=== PATIENT | male | born 1970 | race Caucasian/White ===

== ENCOUNTER 2023-06-12 07:55 | Emergency (ER) | payer MEDICARE ==
[2023-06-12] MEDS ORDERED: cefTRIAXone 2 GM Vial IVPUSH ONE (08:58)
[2023-06-12] MEDS ORDERED: Ondansetron 4 MG/2 ML SDV IVPUSH ONE (09:00)
[2023-06-12] MEDS ORDERED: fentaNYL 100 MCG/2 ML SDV IVPUSH ONE (09:02)
[2023-06-12] MEDS ORDERED: Iopamidol 612 MG/ML 100 ML Bottle IVPUSH ONE (09:08)
[2023-06-12] MEDS ORDERED: Lactated Ringers 1,000 ML IV ONE (09:08)
[2023-06-12 09:13] LABS: BASOPHILS PERCENT AUTO 0.1 % (0.0-1.0); EOSINOPHILS PERCENT AUTO 0.1 % (1.0-3.0); HEMATOCRIT 45.2 % (40.0-54.0); HEMOGLOBIN 13.9 g/dL (14.0-18.0); LYMPHOCYTES PERCENT AUTO 3.2 % (20.5-50.1); MEAN CORPUSCULAR HEMOGLOBIN 27.7 pg (27.0-34.0); MEAN CORPUSCULAR HGB CONC 30.8 g/dL (33.0-35.0); MEAN CORPUSCULAR VOLUME 90.2 fL (80-100); MONOCYTES PERCENT AUTO 8.3 % (2-8); NEUTROPHILS PERCENT AUTO 88.3 % (42.2-75.2); PLATELET COUNT,PLT 211 10^3/uL (150-450); RED BLOOD CELL COUNT 5.01 10^6/uL (4.6-6.2); WHITE BLOOD CELL COUNT,WBC 19.4 10^3/uL (5.0-10.0)
[2023-06-12 09:43] LABS: LACTIC ACID 1.7 mmol/L (0.4-2.0)
[2023-06-12 09:46] LABS: ALBUMIN 2.8 g/dL (3.4-5.0); ANION GAP 9.5 mEq/L (7-13); BILIRUBIN TOTAL 1.9 mg/dL (0.2-1.0); CALCIUM 8.6 mg/dL (8.5-10.1); CREATININE 1.66 mg/dL (0.70-1.30); EST CRCL DRUG DOSING (CG) 62.46 mL/min; MAGNESIUM 1.5 mg/dL (1.8-2.4); PHOSPHORUS 2.5 mg/dL (2.6-4.7); POTASSIUM,K 4.5 mmol/L (3.5-5.1); PROTEIN TOTAL,TP 7.1 g/dL (6.4-8.2)
[2023-06-12 09:53] LABS: A/G RATIO 0.65; C-REACTIVE PROTEIN 22.8 mg/dL (0.0-0.9)
[2023-06-12] MEDS ORDERED: Meropenem 1 GM SDV IVPUSH ONE (10:43)
[2023-06-12] MEDS ORDERED: Clindamycin in 0.9 % Sod Chlor 600 MG in Premix Bag 1 BAG IV ONE ×2 (11:09)
== END 2023-06-12 11:56 ==
LOC: DL.ED 07:55
DX: L03.314 Cellulitis of groin (principal); R09.02 Hypoxemia; J90 Pleural effusion, not elsewhere classified; K76.0 Fatty (change of) liver, not elsewhere classified; Q89.8 Other specified congenital malformations; E66.01 Morbid (severe) obesity due to excess calories; Z68.44 Body mass index [BMI] 60.0-69.9, adult; Z88.2 Allergy status to sulfonamides; Z88.1 Allergy status to other antibiotic agents
CPT/HCPCS: 36415; 71250; 73701; 80053; 83605; 83735; 84100; 84145; 84484; 85025; 86140; 87040; 96361; 96365; 96375; 99285; J0696; J2185; J2405; J3010; J3490; J7120; Q9967